=== PATIENT | female | born 1965 | race Caucasian/White ===

== ENCOUNTER 2023-05-24 09:00 | Emergency (ER) | payer MEDICAID, OTHER ==
[~2023-05-24] VITALS: Ht 167.6 cm; Wt 91.0 kg
[2023-05-24 09:13] VITALS: TEMP 98; O2SAT 100
[2023-05-24] MEDS ORDERED: LIDO1ADH23 TP (11:58)
[2023-05-24] MEDS ORDERED: METH-653 MT (11:58)
[2023-05-24] MEDS ORDERED: IBUP-2028 MT (11:58)
[2023-05-24] MEDS ORDERED: ACETAMINOPHEN 325MG TABLET PO ONE (12:00)
[2023-05-24] MEDS ORDERED: IBUPROFEN 400MG TABLET PO ONE (12:00)
[2023-05-24 12:50] VITALS: BP 128/79; PULSE 78; RESP 20
== END 2023-05-24 12:51 | disposition home or self-care (01) ==
LOC: ER 10:07
DX: S09.90XA Unspecified injury of head, initial encounter (principal); M50.30 Other cervical disc degeneration, unspecified cervical region; W18.39XA Other fall on same level, initial encounter; Y93.89 Activity, other specified; Y92.89 Other specified places as the place of occurrence of the external cause; Y99.8 Other external cause status
CPT/HCPCS: 99284